=== PATIENT | female | born 1960 ===

== ENCOUNTER 2021-06-05 09:45 | Inpatient (IN) | payer OTHER ==
[~2021-06-05] VITALS: Ht 162.6 cm; Wt 71.7 kg
[2021-06-09] MEDS ORDERED: PROTONIX40 MG PO (10:57)
== END 2021-06-12 11:40 | disposition home or self-care (01) | DRG 735 ==
LOC: O/R 06-11 05:55 → OB/GYN 06-11 09:45 → SURG-SUITE 06-11 17:18 → OB/GYN 06-11 21:00 → SURG-SUITE 06-12 11:40
PROVIDERS: ADMIT Obstetrics & Gynecology Gynecologic Oncology; ATTEND Obstetrics & Gynecology Gynecologic Oncology
PROC: 0UT94ZZ Resection of Uterus, Percutaneous Endoscopic Approach (ICD-10-PCS; 2021-06-11)
PROC: 0UT74ZZ Resection of Bilateral Fallopian Tubes, Percutaneous Endoscopic Approach (ICD-10-PCS; 2021-06-11)
PROC: 0UT24ZZ Resection of Bilateral Ovaries, Percutaneous Endoscopic Approach (ICD-10-PCS; 2021-06-11)
PROC: 07TC4ZZ Resection of Pelvis Lymphatic, Percutaneous Endoscopic Approach (ICD-10-PCS; principal; 2021-06-11 21:00)
DX: C54.1 Malignant neoplasm of endometrium (principal); Z20.822 Contact with and (suspected) exposure to COVID-19